=== PATIENT | female | born 1950 | race Caucasian/White ===

== ENCOUNTER 2022-05-01 12:17 | Emergency (ER) | payer MEDICARE ==
[~2022-05-01] VITALS: Ht 160 cm; Wt 68.2 kg
[2022-05-01 12:23] VITALS: BP 135/83
[2022-05-01 12:31] VITALS: BP 138/76
[2022-05-01] MEDS ORDERED: CEPHALEXIN500 M1 PO ×2 (12:33→12:34)
[2022-05-01 12:40] VITALS: BP 138/76
== END 2022-05-01 12:59 | disposition home or self-care (01) ==
LOC: ED 12:17
PROC: 0H9NXZZ Drainage of Left Foot Skin, External Approach (ICD-10-PCS; principal; 2022-05-01)
DX: L03.032 Cellulitis of left toe (principal); E03.9 Hypothyroidism, unspecified